=== PATIENT | male | born 1985 | race Native Hawaiian/Other Pacific Islander ===

== ENCOUNTER 2017-09-14 11:18 | Emergency (ER) | payer OTHER ==
[~2017-09-14] VITALS: Ht 172.7 cm; Wt 95.3 kg
== END 2017-09-14 13:45 | disposition home or self-care (01) ==
LOC: ED 11:18
DX: M54.2 Cervicalgia (principal); R25.2 Cramp and spasm
CPT/HCPCS: 99283

== ENCOUNTER 2018-04-01 00:07 | Outpatient (CLI) | payer OTHER | END 2018-04-01 00:10 | disposition short-term general hospital (02) | LOC: AMB 00:07 | DX: S51.811A Laceration without foreign body of right forearm, initial encounter (principal); S46.221A Laceration of muscle, fascia and tendon of other parts of biceps, right arm, initial encounter; X78.0XXA Intentional self-harm by sharp glass, initial encounter; Y92.89 Other specified places as the place of occurrence of the external cause | CPT/HCPCS: A0425; A0427 ==

== ENCOUNTER 2018-04-01 00:17 | Emergency (ER) | payer OTHER ==
[~2018-04-01] VITALS: Ht 172.7 cm; Wt 102.1 kg
[2018-04-01 03:00] VITALS: BP 110/76; TEMP 98.6
== END 2018-04-01 03:05 | disposition home or self-care (01) ==
LOC: ED 00:17
PROC: 0HQDXZZ Repair Right Lower Arm Skin, External Approach (ICD-10-PCS; principal; 2018-04-01)
PROC: 0HQBXZZ Repair Right Upper Arm Skin, External Approach (ICD-10-PCS; 2018-04-01)
DX: S51.811A Laceration without foreign body of right forearm, initial encounter (principal); S41.111A Laceration without foreign body of right upper arm, initial encounter; W22.8XXA Striking against or struck by other objects, initial encounter
CPT/HCPCS: 90471; 90715; 99283